=== PATIENT | female | born 1995 | race Caucasian/White ===

== ENCOUNTER 2020-12-05 17:02 | Inpatient (IN) | payer OTHER ==
[2020-12-05 18:19] LABS: HEMOGLOBIN 10.1 gm/dl (12.3-15.3); RED BLOOD COUNT 3.55 M/UL (4.00-5.10); WHITE BLOOD COUNT 12.8 K/UL (4.5-11.0)
[2020-12-06] MEDS ORDERED: IBUPROFEN800 MG PO (14:33)
[2020-12-06] MEDS ORDERED: COLACE100 MG PO (14:33)
[2020-12-07 08:00] LABS: HEMOGLOBIN 9.5 gm/dl (12.3-15.3)
== END 2020-12-08 11:30 | disposition home or self-care (01) | DRG 807 ==
LOC: GENOP 17:02 → OB 17:31
PROVIDERS: Obstetrics & Gynecology; ADMIT Obstetrics & Gynecology
PROC: 10D07Z5 Extraction of Products of Conception, High Forceps, Via Natural or Artificial Opening (ICD-10-PCS; principal; 2020-12-05)
PROC: 4A1HXCZ Monitoring of Products of Conception, Cardiac Rate, External Approach (ICD-10-PCS; 2020-12-05)
PROC: 3E033VJ Introduction of Other Hormone into Peripheral Vein, Percutaneous Approach (ICD-10-PCS; 2020-12-05)
PROC: 10907ZC Drainage of Amniotic Fluid, Therapeutic from Products of Conception, Via Natural or Artificial Opening (ICD-10-PCS; 2020-12-05)
DX: O99.324 Drug use complicating childbirth (principal); Z37.0 Single live birth; F11.90 Opioid use, unspecified, uncomplicated; Z3A.39 39 weeks gestation of pregnancy
CPT/HCPCS: 36415; 51702; 80307; 81001; 85014; 85018; 85025; 90715; J2590; J3010; U0002